=== PATIENT | male | born 1955 | race Hispanic/Latino ===

== ENCOUNTER 2018-05-30 22:18 | Observation (INO) | payer OTHER ==
[~2018-05-30] VITALS: Ht 170.2 cm; Wt 93.9 kg
[2018-05-31] MEDS ORDERED: HYDROCODONE/APAP 10MG-325MG TAB PO ONE (00:30)
[2018-05-31] MEDS ORDERED: ONDANSETRON HCL 4 MG ORAL DISINTEGRATING TAB PO ONE (00:30)
--- NOTE | 2018-05-31 02:28 | Diagnostic Imaging Report ---
RIBS UNILAT W/CXR Comparison: None Clinical history: \S\LEFT RIBS, FELL OFF LADDER \S\[id number] \S\104 Findings: Mildly enlarged cardiac silhouette. No edema or consolidation. Questionable tiny left apical pneumothorax. No significant pleural effusion. No acute displaced rib fracture. Screw fixation of the proximal left humerus. Impression: 1. Questionable tiny left apical pneumothorax versus artifact. 2. No acute displaced rib fracture. Signed by: Dr Salma Rodriguez MD on 05/31/2018 2:24 AM
--- NOTE | 2018-05-31 04:49 | Diagnostic Imaging Report ---
EXAM: CT CHEST WO DATE: 05/31/2018 2:56 AM INDICATION: \S\EVAL FOR PNEUMOTHORAX, RIB FX \S\[id number] \S\031 COMPARISON: None TECHNIQUE: Multidetector CT scanning of the chest was performed. Coronal and sagittal multiplanar reformations were obtained. IV Contrast: 0 ml Isovue 370/300 FINDINGS: LUNGS AND PLEURA: Small left pneumothorax and mild left basilar atelectasis. Additional basilar and subpleural groundglass opacities likely reflect a combination of atelectasis and scarring. There is a nonspecific 5 mm left lower lobe nodule on image 35. No pleural effusion. HEART, MEDIASTINUM, VESSELS: Cardiomegaly with coronary artery and aortic calcification. Trace pericardial effusion. No adenopathy. UPPER ABDOMEN: Unremarkable. Small hiatal hernia. MUSCULOSKELETAL: No acute displaced rib fracture. Partially imaged left humeral screw. Left glenohumeral degenerative changes. IMPRESSION: Small left pneumothorax. No acute underlying rib fracture. Signed by: Dr Salma Rodriguez MD on 05/31/2018 4:46 AM
[2018-05-31] MEDS ORDERED: SODIUM CHLORIDE 0.9% 1000ML 1,000 ML IV STA (05:04)
[2018-05-31 05:19] LABS: BASOPHILS % 0.5 % (0.0-1.0); EOSINOPHILS # (AUTO) 0.3 (0.0-0.4); EOSINOPHILS % 3.1 % (0.0-6.0); HEMATOCRIT 41.3 % (38.2-49.6); HEMOGLOBIN 13.6 g/dL (14.0-18.0); LYMPHOCYTES % 22.9 % (18.0-39.1); MEAN CORPUSCULAR HEMOGLOBIN 29.3 pg (28-32); MEAN CORPUSCULAR HGB CONC 32.9 g/dL (31-35); MONOCYTES # (AUTO) 0.7 (0.2-0.8); MONOCYTES % 7.7 % (4.4-11.3); NEUTROPHILS # (AUTO) 5.7 (2.1-6.9); NEUTROPHILS % 65.5 % (38.7-80.0); PLATELET COUNT 200 x10e3/uL (140-360); RED BLOOD COUNT 4.64 x10e6/uL (4.3-5.7); RED CELL DISTRIBUTION WIDTH 12.3 % (11.7-14.4)
[2018-05-31] MEDS ORDERED: ONDANSETRON HCL INJ 2 MG/ML VIAL IV PRN (05:30)
[2018-05-31 05:35] LABS: CLARITY,URINE CLEAR (CLEAR); COLOR,URINE YELLOW (YELLOW)
[2018-05-31 05:36] LABS: BILIRUBIN,URINE NEGATIVE (NEGATIVE); KETONES,URINE NEGATIVE (NEGATIVE); LEUKOCYTE ESTERASE ,URINE NEGATIVE (NEGATIVE); NITRITE,URINE NEGATIVE (NEGATIVE); PROTEIN,URINE DIPSTICK NEGATIVE (NEGATIVE); URINE UROBILINOGEN 0.2 mg/dL (0.2 - 1)
[2018-05-31 05:37] LABS: BACTERIA,URINE RARE /HPF; EPITHELIAL CELLS,URINE RARE /LPF
[2018-05-31 05:52] LABS: INR 1.03; PROTHROMBIN TIME 12.7 seconds (11.9-14.5)
[2018-05-31 05:53] LABS: PARTIAL THROMBOPLASTIN TIME 26.9 seconds (23.8-35.5)
[2018-05-31 06:00] LABS: ALBUMIN 4.1 g/dL (3.5-5.0); ALBUMIN/GLOBULIN RATIO 1.5 (0.8-2.0); ANION GAP 16.6 mmol/L (8-16); CALCIUM 9.4 mg/dL (8.4-10.2); CREATININE, SERUM 1.25 mg/dL (0.72-1.25); POTASSIUM 3.6 mmol/L (3.5-5.1)
[2018-05-31 06:06] LABS: CREATINE KINASE MB 1.8 ng/mL (0-5.0)
[2018-05-31] MEDS: SODIUM CHLORIDE 0.9% 1000ML 1,000 ML IV SCH ×3 (06:26→21:02)
[2018-05-31] MEDS: HYDROCODONE/APAP 10MG-325MG TAB PO PRN ×2 (08:03→18:29)
--- NOTE | 2018-05-31 08:38 | Diagnostic Imaging Report ---
PROCEDURE: X-RAY CHEST, MULTIPLE VIEWS WITH UPRIGHT INSPIRATORY AND EXPIRATORY PA VIEWS COMPARISON: CT scan of the chest dated 2017 at 3:08 AM INDICATIONS: PNEUMOTHORAX FINDINGS: LUNGS: No consolidations or edema. Basilar airspace opacities compatible with atelectasis. PLEURA: No effusions or pneumothorax. Previously visualized small pneumothorax seen on the chest CT not readily apparent on this study. HEART \T\ MEDIASTINUM: The heart is within normal size-limits. BONES \T\ SOFT TISSUES: No acute findings. CONCLUSION: Bibasilar atelectasis. Barrera Boyle D.O. Dictated by: Barrera Boyle D.O. on 05/31/2018 at 8:45 Electronically approved by: Barrera Boyle D.O. on 05/31/2018 at 8:45
[2018-05-31] MEDS ORDERED: DOCUSATE SODIUM 100 MG CAP PO PRN (09:45)
[2018-05-31] MEDS ORDERED: ACETAMINOPHEN 325 MG TAB PO PRN (09:45)
[2018-05-31] MEDS ORDERED: ALBUTEROL/IPRATROPIUM 3 ML NEB NEB PRN (09:45)
--- NOTE | 2018-05-31 10:34 | History and Physical ---
PATIENT LOCATION: ER room 3. PRESENTING COMPLAINT: Left-sided chest wall pain, status post accidental fall yesterday. HISTORY OF PRESENT ILLNESS: This 62-year-old male was admitted from ER. The patient came himself to ER last night. He told that he had accidental fall from ladder while he was working at home around noontime yesterday. The patient told that the ladder accidentally slipped and he fell on the stairs on the left side of the chest. The patient had some abrasion over his left chest wall. The patient did not go to the hospital. At that time, he was staying at home. With passage of time, his pain got worse. At that time, he decided to come to the hospital. The patient denied any loss of consciousness, dizziness, chest pain, or palpitations prior to the fall. He denies any other complaints at the present time other than pain. The patient had mild shortness of breath last night. He denies any shortness of breath at the present time. He also denies any hemoptysis, fever, nausea or vomiting. The patient did not have any similar episode in the past as per his statement. REVIEW OF SYSTEMS CONSTITUTIONAL: No fever, chills, rigor. ENT: No nasal congestion or sore throat. No visual disturbance. No earache. No discharge or bleeding from nose or ears. CARDIOVASCULAR: No chest pain, shortness of breath, palpitations. PULMONARY: No cough, no hemoptysis. GI: No abdominal pain, nausea, vomiting. No passage of bloody stool or black stool. : No dysuria. No hematuria. MUSCULOSKELETAL, SKIN, LYMPHATIC: Left chest wall pain as per the HPI. No other joint pain. No joint swelling. No skin rash. No laceration. Patient has abrasion about his left lateral chest wall. NEUROLOGIC: No loss of consciousness, seizure or headache. HISTORY OF PAST MEDICAL ILLNESS: Hypertension, hyperlipidemia, gouty arthritis, lumbar spondylosis, osteoarthritis, fatty liver. No history of CAD or stroke. HISTORY OF PAST SURGERY: No history of surgery. ALLERGIES: NO KNOWN MEDICATION ALLERGIES. HOME MEDICATIONS: As per med reconciliation sheet. SOCIAL HISTORY: The patient lives at home with his girlfriend. He has adult children. 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 HABITS: The patient quit cigarette smoking in the remote past. He smokes marijuana at times. He drinks alcohol socially. Denies any IV substance abuse history. FAMILY HISTORY: Patients mother has carcinoma of breast and hypertension. His father of alcoholic cirrhosis. His siblings are alive and healthy. PHYSICAL EXAMINATION VITALS: BP 139/70, pulse 42 to 52, temp 97.1, T-max 92.8, respirations 14 to 18, SpO2 96% to 100% on 2 L oxygen via nasal cannula. GENERAL: Alert, not in acute distress now. Lying in bed comfortably. HEENT: No pallor. No icterus. Pupils are equal and reacting. Oral mucosa is moist. NECK: Supple. No JVD. No carotid bruit. No lymphadenopathy. No thyromegaly. HEART: S1 and S2 regular. No murmur. LUNGS: Air entry equal on both sides. No crackles. No rhonchi. Chest wall on left lateral side abrasion and mass present with mild swelling and tenderness. No laceration. No bleeding. ABDOMEN: Soft, nontender. No palpable mass. Bowel sounds active in all quadrants. EXTREMITIES: No edema, cyanosis, clubbing. NEUROLOGIC: Motor grossly equal on both sides. LAB DATA: EKG: Sinus bradycardia at a rate of 42 beats per minute. No significant ST-T changes. CBC: WBC 8.66, hemoglobin 13.6, hematocrit 41.3, platelets 200, MCV 89, RDW 12. PT 12.7, INR 1.0, PTT 26.9. Chemistry panel: Sodium 140, potassium 3.6, chloride 100, CO2 27, anion gap 13, BUN 22, creatinine 1.25, glucose 106, calcium 9.4, total bilirubin 0.6, AST 20, ALT 29, alk phos 51, CK 677, CK-MB 1.80, troponin 0.001, total protein 6.9, albumin 4.1, globulin 2.8. Urinalysis negative for protein, glucose, ketones, leukocyte esterase. WBCs none. RBCs none. RADIOLOGICAL DATA: X-ray of chest and rib series: Questionable tiny left apical pneumothorax. No acute displaced rib fracture. CT of chest without contrast: Small left pneumothorax. No acute underlying rib fracture. Cardiomegaly with coronary artery and aortic calcifications plus pericardial effusion. No adenopathy. Small left pneumothorax and mild left basilar atelectasis. No pleural effusion. ASSESSMENT AND PLAN 1. Left chest wall pain status post fall. No evidence of fracture on chest x-ray and CT. Would keep the patient on pain medication. 2. Small left apical pneumothorax, likely secondary to the soft-tissue trauma from fall. Pulmonary consult is requested from ER. Will follow pulmonary's recommendations. Patient does not appear to have any symptoms. Will have a repeat chest x-ray in the morning. 3. Sinus bradycardia, exact etiology not clear. Will monitor for now. Can ask manager supply chain planning if they have any evaluation while the patient is in the hospital or as an outpatient. 4. Hypertension. Continue regular medications. 5. Hyperlipidemia. Continue regular medications. 6. History of gouty arthritis. Continue regular medications. 7. Slight elevation of the creatine kinase, likely due to mild rhabdomyolysis. Patient does not have any anion gap. Will keep the patient currently on IV hydration for now. Check CK in the morning. 8. Discharge plan: Will discharge the patient when cleared by the study lead. Job#: [id number]
[2018-05-31] MEDS: TIZANIDINE HCL 4 MG TAB PO SCH (11:35)
[2018-05-31] MEDS: ALLOPURINOL 300 MG TAB PO SCH (11:35)
[2018-05-31] MEDS: LOSARTAN POTASSIUM 100 MG TAB PO SCH (11:35)
[2018-05-31] MEDS: AMLODIPINE BESYLATE 5 MG TAB PO SCH (11:35)
[2018-05-31] MEDS: HYDROCHLOROTHIAZIDE 25 MG TAB PO SCH (11:35)
[2018-05-31] MEDS: FAMOTIDINE 20 MG TAB PO SCH ×2 (11:35→16:56)
[2018-05-31] MEDS: ASPIRIN 81 MG ENTERIC COATED PO SCH (11:55)
[2018-05-31 12:21] LABS: CREATINE KINASE 642 IU/L (30-200)
[2018-05-31 16:14] VITALS: BP 137/73
[2018-05-31 16:34] VITALS: BP 137/73
--- NOTE | 2018-05-31 16:38 | Consultation ---
DATE OF CONSULTATION: May 31, 2018 PULMONARY CONSULTATION REASON FOR CONSULTATION: Pneumothorax. HPI: Mr. Terry is a 62-year-old male who presented to the emergency room after he fell from a 7 foot ladder. The patient had a small pneumothorax which was visible on chest x-ray and CT chest but no respiratory distress. He has been put on high-flow oxygen. He currently is denying any chest pain. He was having some chest discomfort earlier. He denies any nausea, vomiting or diarrhea. REVIEW OF SYSTEMS: GENERAL: Denies any fever or chills. HEENT: Denies any head trauma. ENT denies any earache. CVS: Now denies any chest pain. RESPIRATORY: Denies any shortness of breath. The rest of the review systems are negative except as in history of present illness. PAST MEDICAL HISTORY: Hypertension and hyperlipidemia. PAST SURGICAL HISTORY: None. FAMILY AND SOCIAL HISTORY: He does not smoke and does not drink. He works in construction. PHYSICAL EXAMINATION: VITALS: Temperature 98.4, pulse of 88, blood pressure 111/62. Respiratory rate of 18. O2 sat 99%. He is on high-flow 6 liters HEENT: Head atraumatic and normocephalic. NECK: Supple. CHEST: Is clear to auscultation bilaterally. No wheezing and no crackles. HEART: S1 and S2 audible. ABDOMEN: Soft, nontender and nondistended. EXTREMITIES: No clubbing, cyanosis or edema. NEUROLOGIC: Awake and alert and no focal neurological deficit. LABORATORY DATA: White count of 8.6, hemoglobin 13.6, platelets 200, sodium 140, potassium 3.6, chloride 100, BUN 22, creatinine 1.25. Chest x-ray and CT chest reviewed the images. ASSESSMENT AND PLAN: A 62-year-old male with traumatic pneumothorax. No rib fracture visible. Small pneumothorax. No need for chest tube. PLAN: Agree with the high-flow oxygen for now. Will repeat a chest x-ray to further evaluate. Hopefully, the patient will be able to be discharged in 24 to 48 hours. Job#: [id number]
[2018-05-31 17:01] VITALS: BP 137/73
[2018-05-31 20:00] VITALS: BP 156/71
[2018-05-31] MEDS ORDERED: ATORVASTATIN 40 MG TAB PO SCH (21:00)
[2018-05-31] MEDS ORDERED: ATORVASTATIN 20 MG TAB PO SCH (21:00)
[2018-05-31 21:04] LABS: CREATINE KINASE MB 1.4 ng/mL (0-5.0)
[2018-06-01] VITALS: BP 151/79
[2018-06-01 04:00] VITALS: BP 164/80
[2018-06-01] MEDS: SODIUM CHLORIDE 0.9% 1000ML 1,000 ML IV SCH (05:16)
--- NOTE | 2018-06-01 05:18 | Diagnostic Imaging Report ---
CHEST 2 VIEWS, Technique: CHEST 2 VIEWS Comparison: 05/31/2018 Clinical history: Pneumothorax Findings: Stable mildly enlarged heart and mediastinal silhouette. Essentially resolved left apical pneumothorax. Mild left basilar opacity, likely atelectasis. IMPRESSION: Essentially resolved left apical pneumothorax. Signed by: Dr Salma Rodriguez MD on 06/01/2018 5:14 AM
[2018-06-01 05:20] LABS: BASOPHILS % 0.4 % (0.0-1.0); EOSINOPHILS # (AUTO) 0.2 (0.0-0.4); EOSINOPHILS % 2.9 % (0.0-6.0); HEMATOCRIT 40.3 % (38.2-49.6); HEMOGLOBIN 13.3 g/dL (14.0-18.0); LYMPHOCYTES # (AUTO) 1.7 (1.0-3.2); LYMPHOCYTES % 22.8 % (18.0-39.1); MEAN CORPUSCULAR HEMOGLOBIN 29.7 pg (28-32); MONOCYTES # (AUTO) 0.7 (0.2-0.8); MONOCYTES % 9.5 % (4.4-11.3); NEUTROPHILS # (AUTO) 4.7 (2.1-6.9); PLATELET COUNT 183 x10e3/uL (140-360); RED BLOOD COUNT 4.48 x10e6/uL (4.3-5.7); RED CELL DISTRIBUTION WIDTH 12.3 % (11.7-14.4)
[2018-06-01 06:01] LABS: ALANINE AMINOTRANSFERASE 25 IU/L (0-55); ALBUMIN 3.8 g/dL (3.5-5.0); ALBUMIN/GLOBULIN RATIO 1.4 (0.8-2.0); ALKALINE PHOSPHATASE 49 IU/L (40-150); BLOOD UREA NITROGEN 13 mg/dL (7-26); BUN/CREATININE RATIO 14 (6-25); CALCIUM 9.1 mg/dL (8.4-10.2); CARBON DIOXIDE 27 mmol/L (22-29); CHLORIDE 103 mmol/L (98-107); CREATININE, SERUM 0.94 mg/dL (0.72-1.25); EST GLOMERULAR FILTRATION RATE > 60 ML/MIN (60-); GLUCOSE 107 mg/dL (74-118); MAGNESIUM 1.9 MG/DL (1.3-2.1); SODIUM 140 mmol/L (136-145)
[2018-06-01 06:13] LABS: THYROID STIMULATING HORMONE 2.086 uIU/mL (0.350-4.940)
[2018-06-01 06:46] LABS: CHOL/HDL RATIO 2.9 (3.9-4.7)
[2018-06-01 06:51] LABS: CREATINE KINASE MB 1.1 ng/mL (0-5.0)
--- NOTE | 2018-06-01 07:25 | Consultation ---
DATE OF CONSULTATION: June 01, 2018 CARDIOLOGY CONSULTATION REASON FOR CONSULTATION: Bradycardia. HPI: This is a 62-year-old male that presented status post fall. According to the patient, he was walking around his house when he fell off a ladder sustaining pain to the left chest area, left arm and left shoulder that he presented to the emergency room for evaluation. In the ER, he had a CT of the chest done that showed small left pneumothorax and he was admitted for further evaluation. He stated having a history of bradycardia. Heart rate in the 40s to 50s. He exercises daily and does 10 miles every day. He denies any palpitation, any shortness of breath, any diaphoresis, or headache. His BNP was 185. Troponin was negative. EKG showed sinus bradycardia with no S/T abnormalities. PAST MEDICAL HISTORY: Hypertension, hyperlipidemia, hypothyroidism, bradycardia, and gout. PAST SURGICAL HISTORY: None. FAMILY HISTORY: Positive for diabetes and hypertension. SOCIAL HISTORY: Lives with family. No smoking. No drinking. MEDICATIONS: See med list. ALLERGIES: HE IS NOT ALLERGIC TO ANY MEDICATIONS. REVIEW OF SYSTEMS: Negative except that mentioned above. His bradycardic and status post fall. PHYSICAL EXAMINATION VITAL SIGNS: Temperature 97, heart rate 48, blood pressure 140/80, respirations 20, oxygen saturation 100% on high flow oxygen. GENERAL: He is awake, alert and oriented times 3. HEENT: Mucous membranes moist. NECK: Supple. LUNGS: Bilateral with decreased breath sounds. CARDIOVASCULAR: S1 and S2 present. ABDOMEN: Soft. NEUROLOGICAL: Intact. EXTREMITIES: With no edema. LABS: Sodium 140, potassium 4, chloride 103, CO2 27, BUN 13, creatinine 0.94, glucose 107. White blood cells 7.28, hemoglobin 13.3, hematocrit 40.3, and platelets 183,000. PT 12.7, PTT 26.9 and INR 1.03. IMPRESSION 1. Sinus bradycardia. 2. Hypertension. 3. Hyperlipidemia. 4. Status post fall. 5. History of gout. 6. History of bradycardia. ASSESSMENT AND PLAN: His heart rate is still in the 40s to 50s. He is asymptomatic and had a history of bradycardia. He had a cardiac stress test in 2014 in [place] that was negative. He also stated that he does 10 miles and exercises every day. He sustained a small left pneumothorax and no chest tube was required. Will go ahead and get an echocardiogram to assess the LV and the valve function. Further cardiac workup pending clinical cause. Thank you for this consultation. DICTATED BY EVELINA WANG NP Job#: [id number] RI
[2018-06-01] MEDS: LOSARTAN POTASSIUM 100 MG TAB PO SCH (08:16)
[2018-06-01] MEDS: ASPIRIN 81 MG ENTERIC COATED PO SCH (08:16)
[2018-06-01] MEDS: FAMOTIDINE 20 MG TAB PO SCH (08:16)
[2018-06-01] MEDS: ALLOPURINOL 300 MG TAB PO SCH (08:17)
[2018-06-01] MEDS: TIZANIDINE HCL 4 MG TAB PO SCH (08:17)
[2018-06-01] MEDS: AMLODIPINE BESYLATE 5 MG TAB PO SCH (08:17)
[2018-06-01] MEDS: HYDROCHLOROTHIAZIDE 25 MG TAB PO SCH (08:17)
[2018-06-01 08:25] VITALS: BP 159/82
[2018-06-01 09:23] VITALS: BP 159/82
[2018-06-01 12:16] VITALS: BP 130/70
--- NOTE | 2018-06-01 18:12 | Discharge Summary ---
CONSULTATIONS 1. Dr. Delgado, jacker feeder. 2. Dr. Emmanuel, research methodologist. FINAL DIAGNOSIS: Traumatic left apical small pneumothorax, resolved. OTHER DIAGNOSES 1. Accidental fall episode at home with left chest wall soft tissue injury. 2. Asymptomatic sinus bradycardia. 3. Hypertension. 4. Hyperlipidemia. 5. Mild rhabdomyolysis due to soft tissue trauma, improved. BRIEF HOSPITAL COURSE: A 62-year-old male was admitted from ER for patient had a fall episode at home from ladder. He fell on his left side of the chest. There is no reports of any trauma to the head. Patient had abrasion [place] over his chest wall. Initially, he did not come to the hospital. He was staying at home, but gradually he started more pain with mild shortness of breath for which he came to the ER. X-ray chest was positive for small left apical pneumothorax without any rib fracture. CT chest without contrast was done, which showed small apical pneumothorax without any fracture. Patient had small pulmonary nodule. He is nonsmoker. Patient was kept for observation. Dr. Delgado, jacker feeder, was consulted. He recommended observation. No need for any chest tube placement. Patient was also found having bradycardia in 40s. Dr. Emmanuel, research methodologist, was consulted. Patient was kept on telemetry. Did not show any other significant arrhythmia. Echocardiogram was done, which showed normal left ventricular ejection fraction. Patient did not have any other complaints. He was cleared by the research methodologist. Patient was discharged home with the instructions for follow up with research methodologist. His repeat chest x-ray done today showed resolution of the apical small pneumothorax. Patient was hemodynamically stable at discharge. VITALS: BP 130/70, pulse 45, temp 97.3, respirations 16, SpO2 of 96% on 3 liters of oxygen by nasal cannula. PHYSICAL EXAMINATION GENERAL: Alert. Not in acute distress. Complains of the pain over the chest wall. HEENT: No pallor. No icterus. Pupils are equally reacting. No facial asymmetry. Oral mucosa is moist. No nasal congestion. NECK: No JVD. No carotid bruit. No lymphadenopathy. No thyromegaly. Neck is supple. HEART: S1 and S2 regular. No murmur. LUNGS: Clear to auscultation. ABDOMEN: Soft, nontender. No palpable mass. EXTREMITIES: No edema, cyanosis, clubbing. NEUROLOGY: Muscle strength symmetric on both sides. LAB DATA: CBC: WBC 7.28, hemoglobin 13, hematocrit 40, platelets 183, MCV 90, RDW 12, neutrophils 64, lymphocytes 22. PT 12.7, INR 1.03, PTT 26.9. Chemistry panel: Sodium 140, potassium 4.0, chloride 102, CO2 27, anion gap 10, glucose 107, BUN 13, creatinine 0.94, calcium 9.1, magnesium 1.9. Total bilirubin 0.5, AST 23, ALT 25, alk phos 49. CK 413, troponin I 0.003. BNP 185. Total protein 6.3, albumin 3.8, globulin 2.8. Triglycerides 153, total cholesterol 159, LDL 73, HDL 55. TSH 2.08, free T4 1.04. RADIOLOGICAL DATA: X-ray chest with ribs: Left apical pneumothorax. No acute displaced rib fracture. CT chest without contrast: Small left pneumothorax, no acute underlying rib fracture. Repeat chest x-ray done this morning: Essentially resolved left apical pneumothorax, mildly enlarged heart and mediastinal shadow, mild left basilar opacity, likely atelectasis. Echocardiogram: Left ventricular wall thickness normal, normal systolic function, ejection fraction 60% to 65%. MEDICATIONS ON DISCHARGE: Please refer to the med reconciliation sheet. DIET: Cardiac diet. ACTIVITY: As tolerated. Fall precautions. INSTRUCTIONS ON DISCHARGE: Continue medications as per discharge recommendation. Chest wall and therapy advised at home as per pulmonology recommendations. Follow up with research methodologist as available. Follow up with me in 1 to 2 weeks. Monitor BP, pulse at home. DAVE TAPIA MD Job#: [id number] HUGO
== END 2018-06-01 14:34 | disposition home or self-care (01) ==
LOC: ER 22:18 → ERHOLD 05-31 05:34 → IMCU 05-31 16:04
PROVIDERS: ADMIT Internal Medicine; ATTEND Internal Medicine
DX: S27.0XXA Traumatic pneumothorax, initial encounter (principal); W11.XXXA Fall on and from ladder, initial encounter; Y93.89 Activity, other specified; Y92.019 Unspecified place in single-family (private) house as the place of occurrence of the external cause; I10 Essential (primary) hypertension; E78.5 Hyperlipidemia, unspecified; Z80.3 Family history of malignant neoplasm of breast; Z81.1 Family history of alcohol abuse and dependence; R00.1 Bradycardia, unspecified; M10.9 Gout, unspecified; E03.9 Hypothyroidism, unspecified; M62.82 Rhabdomyolysis
CPT/HCPCS: 36415 ×2; 71046; 71101; 71250; 80053 ×2; 80061; 81001; 82550 ×2; 82553 ×2; 83735; 83880; 84439; 84443; 84484 ×2; 85025 ×2; 85610; 85730; 93005; 93306; 96361; 99285; G0378 ×2; J7030 ×2

== ENCOUNTER 2019-12-28 14:48 | Inpatient (IN) | payer OTHER ==
[~2019-12-28] VITALS: Ht 170.2 cm; Wt 91.6 kg
--- OUTSIDE RECORDS SUMMARY | 2019-12-28 14:50 | XMS REPORT ---
Author Author [facility] Address Unknown Phone Unavailable Care Team Providers Care Manager Real Estate Name Role Phone Gaston TAPIA Unavailable Unavailable Problems This patient has no known problems. Allergies, Adverse Reactions, Alerts This patient has no known allergies or adverse reactions. Medications This patient has no known medications. Results Test Description Test Time Test Comments Text Results Atomic Results Result Comments CHEST 2 VIEWS 2018-06-01 05:11:00 [place] [address] Patient Name: AYLEEN CLEMENTE MR #: [id number] : 1955 Age/Sex: 62/M Req #: [id number] [facility] Physician: DAVE TAPIA MD Ordered by: DAVE TAPIA MD Report #: [id number] Location: [facility] Room/Bed: [place] [address] Procedure: [id number] DX/CHEST 2 VIEWS Exam Date: 06/01/18 Exam Time: 0423 REPORT STATUS: Signed CHEST 2 VIEWS, Technique: CHEST 2 VIEWS Comparison: 05/31/2018 Clinical history: Pneumothorax Findings: Stable mildly enlarged heart and mediastinal silhouette. Essentially resolved left apical pneumothorax. Mild left basilar opacity, likely atelectasis. IMPRESSION: Essentially resolved left apical pneumothorax. Signed by: Dr Aye Rodriguez MD on 06/01/2018 5:14 AM Dictated By: AYE RODRIGUEZ MD 3 Transcribed By: SALVATORE on 06/01/18513 COPY TO: DAVE TAPIA MD CHEST SPECIAL VIEWS 2018-05-31 08:45:00 [place] [address] Patient Name: AYLEEN CLEMENTE MR #: [id number] : 1955 Age/Sex: 62/M Req #: [id number] Adm Physician: DAVE TAPIA MD Ordered by: DAMI CHACKO MD Report #: [id number] Location: [facility] Room/Bed: [place] [address] Procedure: [id number] DX/CHEST SPECIAL VIEWS Exam Date: 05/31/18 Exam Time: 0815 REPORT STATUS: Signed PROCEDURE: X-RAY CHEST, MULTIPLE VIEWS WITH UPRIGHT INSPIRATORY AND EXPIRATORY PA VIEWS COMPARISON: CT scan of the chest dated 2017 at 3:08 AM INDICATIONS: PNEUMOTHORAX FINDINGS: LUNGS: No consolidations or edema. Basilar airspace opacities compatible with atelectasis. PLEURA: No effusions or pneumothorax. Previously visualized small pneumothorax seen on the chest CT not readily apparent on this study. HEART T MEDIASTINUM: The heart is within normal size- limits. BONES T SOFT TISSUES: No acute findings. CONCLUSION: Bibasilar atelectasis. Conrad Boyle D.O. Dictated by: Conrad Boyle D.O. on 05/31/2018 at 8:45 Electronically approved by: Conrad Boyle D.O. on 05/31/2018 at 8:45 Dictated By: CONRAD BOYLE DO Transcribed By: JEREMY on 05/31/18 0845 COPY TO: DAMI CHACKO MD CT CHEST WO 2018-05-31 04:16:00 [place] [address] Patient Name: AYLEEN CLEMENTE MR #: [id number] : 1955 Age/Sex: 62/M Req #: [id number] Adm Physician: Ordered by: DAMI CHACKO MD Report #: [id number] Location: ER Room/Bed: Procedure: [id number] CT/CT CHEST WO Exam Date: 05/31/18 Exam Time: 309 REPORT STATUS: Signed EXAM: CT CHEST WO DATE: 05/31/2018 2:56 AM INDICATION: S EVAL FOR PNEUMOTHORAX, RIB FX S [id number] S 031 COMPARISON: None TECHNIQUE: Multidetector CT scanning of the chest was performed. Coronal and sagittal multiplanar reformations were obtained. IV Contrast: 0 ml Isovue 370/300 FINDINGS: LUNGS AND PLEURA: Small left pneumothorax and mild left basilar atelectasis. Additional basilar and subpleural groundglass opacities likely reflect a combination of atelectasis and scarring. There is a nonspecific 5 mm left lower lobe nodule on image 35. No pleural effusion. HEART, MEDIASTINUM, VESSELS: Cardiomegaly with coronary artery and aortic calcification. Trace pericardial effusion. No adenopathy. UPPER ABDOMEN: Unremarkable. Small hiatal hernia. MUSCULOSKELETAL: No acute displaced rib fracture. Partially imaged left humeral screw. Left glenohumeral degenerative changes. IMPRESSION: Small left pneumothorax. No acute underlying rib fracture. Signed by: Dr Aye Rodriguez MD on 05/31/2018 4:46 AM Dictated By: AYE RODRIGUEZ MD 5 Transcribed By: SALVATORE on 05/31/18445 COPY TO: DAMI CHACKO MD RIBS UNILAT W/CXR 2018-05-31 02:17:00 [place] [address] Patient Name: AYLEEN CLEMENTE MR #: [id number] : 1955 Age/Sex: 62/M Req #: [id number] Adm Physician: Ordered by: DAMI CHACKO MD Report #: [id number] Location: ER Room/Bed: Procedure: [id number] DX/RIBS UNILAT W/CXR Exam Date: 05/31/18 Exam Time: 010 REPORT STATUS: Signed RIBS UNILAT W/CXR Comparison: None Clinical history: S LEFT RIBS, FELL OFF LADDER S [id number] S 0105 Findings: Mildly enlarged cardiac silhouette. No edema or consolidation. Questionable tiny left apical pneumothorax. No significant pleural effusion. No acute displaced rib fracture. Screw fixation of the proximal left humerus. Impression: 1. Questionable tiny left apical pneumothorax versus artifact. 2. No acute displaced rib fracture. Signed by: Dr Aye Rodriguez MD on 05/31/2018 2:24 AM Dictated By: AYE RODRIGUEZ MD 3 Transcribed By: SALVATORE on 05/31/18223 COPY TO: DAMI CHACKO MD
[2019-12-28] MEDS ORDERED: ASPIRIN 81 MG CHEW TAB PO ONE (15:15)
[2019-12-28 15:30] LABS: BASOPHILS % 0.4 % (0.0-1.0); EOSINOPHILS # (AUTO) 0.3 (0.0-0.4); EOSINOPHILS % 3.4 % (0.0-6.0); HEMATOCRIT 44.9 % (38.2-49.6); HEMOGLOBIN 14.7 g/dL (14.0-18.0); LYMPHOCYTES # (AUTO) 1.9 (1.0-3.2); LYMPHOCYTES % 25.2 % (18.0-39.1); MEAN CORPUSCULAR HEMOGLOBIN 28.9 pg (28-32); MEAN CORPUSCULAR HGB CONC 32.7 g/dL (31-35); MEAN CORPUSCULAR VOLUME 88.4 fL (81-99); MONOCYTES # (AUTO) 0.6 (0.2-0.8); MONOCYTES % 8.5 % (4.4-11.3); NEUTROPHILS # (AUTO) 4.6 (2.1-6.9); NEUTROPHILS % 62.2 % (38.7-80.0); PLATELET COUNT 243 x10e3/uL (140-360); RED BLOOD COUNT 5.08 x10e6/uL (4.3-5.7); RED CELL DISTRIBUTION WIDTH 12.6 % (11.7-14.4)
[2019-12-28 15:42] LABS: INR 0.89; PROTHROMBIN TIME 12.6 seconds (11.9-14.5)
[2019-12-28 15:43] LABS: PARTIAL THROMBOPLASTIN TIME 27.1 seconds (23.8-35.5)
[2019-12-28 15:50] LABS: ALANINE AMINOTRANSFERASE 20 IU/L (0-55); ALBUMIN 4.2 g/dL (3.5-5.0); ALBUMIN/GLOBULIN RATIO 1.4 (0.8-2.0); ALKALINE PHOSPHATASE 57 IU/L (40-150); ANION GAP 10.7 mmol/L (8-16); BLOOD UREA NITROGEN 12 mg/dL (7-26); BUN/CREATININE RATIO 11 (6-25); CALCIUM 9.7 mg/dL (8.4-10.2); CARBON DIOXIDE 29 mmol/L (22-29); CHLORIDE 105 mmol/L (98-107); CREATINE KINASE 168 IU/L (30-200); CREATININE, SERUM 1.07 mg/dL (0.72-1.25); EST GLOMERULAR FILTRATION RATE > 60 ML/MIN (60-); GLUCOSE 82 mg/dL (74-118); POTASSIUM 3.7 mmol/L (3.5-5.1); SODIUM 141 mmol/L (136-145)
[2019-12-28] MEDS ORDERED: NITROGLYCERIN 0.4 MG SUBL SL PRN ×2 (16:15→19:15)
[2019-12-28] MEDS ORDERED: MORPHINE SULFATE 2 MG/ML SYR 1ML IV PRN (16:15)
[2019-12-28] MEDS ORDERED: ONDANSETRON HCL INJ 2MG/ML 2ML 2 MG/ML VIAL IV PRN (16:15)
--- NOTE | 2019-12-28 16:38 | Diagnostic Imaging Report ---
EXAMINATION: CHEST SINGLE (PORTABLE) INDICATION: Chest pain, shortness of breath. COMPARISON: Chest radiograph 06/01/2018. CT chest 05/31/2018. FINDINGS: TUBES and LINES: None. LUNGS: Lungs are well inflated. There is no evidence of pneumonia or pulmonary edema. PLEURA: No pleural effusion or pneumothorax. HEART AND MEDIASTINUM: The cardiomediastinal silhouette is unremarkable. BONES AND SOFT TISSUES: No acute osseous lesion. Soft tissues are unremarkable. UPPER ABDOMEN: No free air under the diaphragm. IMPRESSION: No acute thoracic abnormality. Signed by: Dr. Michelle Mejia MD on 12/28/2019 4:35 PM
[2019-12-28] MEDS ORDERED: ACETAMINOPHEN 325 MG TAB PO PRN (17:30)
--- NOTE | 2019-12-28 17:31 | NUR ---
LAB CALLED TO ADD ON
[2019-12-28] MEDS: FAMOTIDINE 20 MG/2 ML VIAL IV SCH (17:32)
--- NOTE | 2019-12-28 17:47 | NUR ---
RCD PT FROM ER BY BED PT IS ALERT AND ORIENTED VITALS CHECKED PT RESTING ON BED ADMISSION ASSESSMENT AND HISTORY AND FAMILY HISTORY DONE NO C/O CHEST PAIN NOW IV PATENT BY SALINE FLUSH INSTRUCTED THE PT REGARDING HOSPITAL POLICY AND ROUTINE BED LOW AND LOCKED CALL LIGHT IN REACH
[2019-12-28 17:50] VITALS: BP 161/88
[2019-12-28 18:24] VITALS: BP 161/88
[2019-12-28 18:25] VITALS: BP 161/88
--- NOTE | 2019-12-28 18:48 | NUR ---
PT RESTING ON BED BED SIDE REPORT GIVEN TO ONCOMING NURSE
[2019-12-28] MEDS ORDERED: HYDRALAZINE HCL 20 MG/ML VIAL IV PRN (19:15)
[2019-12-28 19:52] LABS: CREATINE KINASE 138 IU/L (30-200)
[2019-12-28 20:00] VITALS: BP 144/80
[2019-12-28] MEDS: ATORVASTATIN 20 MG TAB PO SCH (21:29)
[2019-12-28 21:55] VITALS: BP 146/82
[2019-12-29] VITALS (8 sets, daily range): BP systolic 132–154; BP diastolic 69–87
--- NOTE | 2019-12-29 00:58 | History and Physical ---
CHIEF COMPLAINT: Chest pain. HISTORY OF PRESENT ILLNESS: A 64-year-old male with known history of hyperuricemia, hypertension, presents to the ED with complaints of chest pressure ongoing since last night. The patient reports that during rest yesterday, he noticed he had some chest pain, chest pressure that lasted throughout majority of the night including to the majority of today. He denies any radiation to the left shoulder and arm. No associated nausea, vomiting, or any abdominal pain. No cough, no congestion. No fever. No sick contacts. No shortness of breath. Denies any trauma to the chest wall. The patient has no history of cardiac disease and has seen Cardiology in the past, but did not need any kind of stent placement. The patient was seen and evaluated at bedside on the medical floor. He is currently doing well with no other issues at this time. REVIEW OF SYSTEMS: Pertinent positives chest pressure. The rest of 14-point review of systems have been reviewed with the patient and are negative. ALLERGIES: NO KNOWN DRUG ALLERGIES. HOME MEDICATIONS: Currently not available at this time. PAST MEDICAL HISTORY: Hypertension and hyperuricemia. PAST SURGICAL HISTORY: Reports none. FAMILY HISTORY: Hypertension and diabetes. SOCIAL HISTORY: No drugs. No alcohol. Does not smoke. Good social support. He is . PHYSICAL EXAMINATION: VITAL SIGNS: Temperature is 97.1, pulse 49, respiratory rate is 18. His blood pressure was found to be 161/88 and pulse ox is 100% on room air. GENERAL: Not in no acute distress. Alert and oriented x3. Cooperative on examination. HEENT: Head atraumatic, atraumatic. Eyes; pupils are equal, round, and reactive to light bilaterally. Extraocular movements intact bilaterally. Neck was supple. Good range of motion. Throat; no evidence of erythema or exudates in the posterior pharynx. Has poor dentition. PULMONARY: Clear to auscultation bilaterally. No wheezing, rales, or rhonchi. No crackles appreciated. CARDIOVASCULAR: Positive S1-S2. No murmurs, rubs, or gallops. ABDOMEN: Soft, nondistended, nontender to palpation. Bowel sounds present. MUSCULOSKELETAL: Strength is 5/5 throughout. No evidence of any muscle deficits on examination. No weakness appreciated. NEUROLOGIC: Cranial nerves 2 through 12 grossly intact. No evidence of any neurological deficits on exam. SKIN: Intact. Warm to touch. Good cap refill. PSYCHIATRIC: Normal affect and mood. EXTREMITIES: No edema. Good range of motion throughout. LABORATORY DATA: Labs show white count 7.3, hemoglobin 14.7, hematocrit 44.9, and platelets of 243. Coagulation, PT 12, INR 0.89, PTT 27. Sodium 141, potassium 3.7, chloride 105, bicarb 29, anion gap of 10, BUN is 12, creatinine is 1.07, glucose 82, calcium 9.7, magnesium is 2, total bilirubin was 0.4, AST 18, ALT 20, alkaline phosphatase 57. Troponins were negative x1. CK 168, total protein 7.2, albumin is 4.2. BNP is 122. MICROBIOLOGY: None. IMAGING STUDIES: Chest x-ray, no acute thoracic abnormality. IMPRESSION: 1. Chest pain, rule out acute coronary syndrome. 2. Hypertension. 3. Sinus bradycardia. PLAN: At this time trend troponins. Aspirin, statin. A 2D echo and Cardiology consultation. First set of enzymes were found to be negative. EKG showed no acute findings. Continue on cardiac telemetry. Await Cardiology recommendations. Ask for his blood pressure, we do not know what his blood pressure medications at home, we will resume home medications except for beta-blockers. Heart rate is 49, but he is asymptomatic. We will need Cardiology evaluation of the EKG and cardiac telemetry. Lovenox for deep venous thrombosis prophylaxis. Encourage ambulation. Consultants involved Cardiology. MD ESTEVAN Samuel/WILFREDOL /[id number]
[2019-12-29 05:07] LABS: BASOPHILS % 0.4 % (0.0-1.0); EOSINOPHILS # (AUTO) 0.4 (0.0-0.4); EOSINOPHILS % 5.1 % (0.0-6.0); HEMATOCRIT 42.2 % (38.2-49.6); HEMOGLOBIN 13.9 g/dL (14.0-18.0); LYMPHOCYTES # (AUTO) 2.1 (1.0-3.2); LYMPHOCYTES % 28.5 % (18.0-39.1); MEAN CORPUSCULAR HEMOGLOBIN 28.8 pg (28-32); MEAN CORPUSCULAR HGB CONC 32.9 g/dL (31-35); MEAN CORPUSCULAR VOLUME 87.6 fL (81-99); MONOCYTES # (AUTO) 0.7 (0.2-0.8); MONOCYTES % 9.5 % (4.4-11.3); NEUTROPHILS # (AUTO) 4.2 (2.1-6.9); NEUTROPHILS % 56.2 % (38.7-80.0); PLATELET COUNT 203 x10e3/uL (140-360); RED BLOOD COUNT 4.82 x10e6/uL (4.3-5.7); RED CELL DISTRIBUTION WIDTH 12.5 % (11.7-14.4)
[2019-12-29 05:34] LABS: ALANINE AMINOTRANSFERASE 18 IU/L (0-55); ALBUMIN 3.8 g/dL (3.5-5.0); ALBUMIN/GLOBULIN RATIO 1.4 (0.8-2.0); ALKALINE PHOSPHATASE 51 IU/L (40-150); ANION GAP 12.1 mmol/L (8-16); BLOOD UREA NITROGEN 12 mg/dL (7-26); BUN/CREATININE RATIO 12 (6-25); CALCIUM 9.5 mg/dL (8.4-10.2); CARBON DIOXIDE 28 mmol/L (22-29); CHLORIDE 104 mmol/L (98-107); CHOL/HDL RATIO 4.7 (3.9-4.7); CHOLESTEROL 220 MD/DL (0-199); CREATININE, SERUM 1.04 mg/dL (0.72-1.25); EST GLOMERULAR FILTRATION RATE > 60 ML/MIN (60-); GLUCOSE 106 mg/dL (74-118); HDL CHOLESTEROL 47 MG/DL (40-60); LDL CHOLESTEROL 140 MG/DL (60-130); POTASSIUM 4.1 mmol/L (3.5-5.1); SODIUM 140 mmol/L (136-145); TRIGLYCERIDES 163 MG/DL (0-149)
[2019-12-29] MEDS: FAMOTIDINE 20 MG/2 ML VIAL IV SCH ×2 (05:35→15:28)
[2019-12-29 05:49] LABS: CREATINE KINASE 129 IU/L (30-200)
--- NOTE | 2019-12-29 07:05 | NUR ---
RCD PT AT BED PT IS ALERT AND ORIENTED PT RESTING ON BED IV PATENT BY SALINE FLUSH GETTING O2 3L BY NC BED LOW AND LOCKED CALL LIGHT IN REACH
--- NOTE | 2019-12-29 07:32 | NUR ---
Dr. Hubbard called
[2019-12-29] MEDS: ASPIRIN 81 MG ENTERIC COATED PO SCH (09:00)
[2019-12-29] MEDS: SODIUM CHLORIDE 0.9% 1000ML 1,000 ML IV SCH (15:10)
[2019-12-29] MEDS ORDERED: CLOPIDOGREL BISULFATE 75 MG TAB PO NR (15:15)
--- NOTE | 2019-12-29 16:46 | Consultation ---
DATE OF CONSULTATION: 12/29/2019 Cardiology Consultation Report REASON FOR CONSULTATION: Chest pain. HISTORY OF PRESENT ILLNESS: Mr. Terry is a 64-year-old gentleman with past medical history of hypertension, hyperlipidemia, not taking medications regularly, presents to this institution after having escalating chest pain episodes that began approximately 2 days ago. The patient reports that he developed substernal chest pressure, heaviness, tightness that began in the evening 2 days ago, associated with malaise and slight dyspnea. He decided to sleep it off and awoke with severe discomfort at 2 in the morning, which woke him from sleep. The patient was feeling very anxious and apprehensive and continued to have stuttering chest pain as the day progressed. He eventually came to the emergency room for further evaluation. Thus far, workup of his cardiac biomarkers have been negative. However, maintains that he has continued chest discomfort. He reports that the pain is nonpleuritic. He describes it as a substernal chest pressure, severe in nature and radiates to his left shoulder. He feels slight dyspnea with discomfort and currently reports that the discomfort is now low level. We had a long discussion in terms of different management options. He reports that he has had previous ischemic risk stratification couple years ago, which was negative, but no other further testing was done at that time. PAST MEDICAL HISTORY: 1. Hypertension. 2. Hypercholesteremia. PAST SURGICAL HISTORY: Denies. FAMILY HISTORY: Mother alive at 95 with hypertension. Father at 63 with cirrhosis complications. Reports brother and sister has hypertension and coronary artery disease, but denies any knowing specific details. SOCIAL HISTORY: He is currently a nonsmoker, but does admit to occasional marijuana use and has occasional alcohol. Denies any injectable or hard drug use. ALLERGIES: NO KNOWN DRUG ALLERGIES. HOME MEDICATIONS: Does not take any currently. REVIEW OF SYSTEMS: GENERAL: Denies any fevers or chills. HEENT: No headaches, visual complaints, sore throat, or stuffy nose. RESPIRATORY: Denies any pleuritic component to the chest pain. Has some dyspnea as noted above. No cough. CARDIOVASCULAR: As per HPI. No orthopnea. No PND. Occasional palpitations. No syncope or near syncope. GI: Denies any abdominal pain. Had some slight nausea. Denies any vomiting, bright red blood per rectum, melena, hematemesis, nausea, or vomiting. : Denies any dysuria, pyuria, or change in urinary frequency. MUSCULOSKELETAL: Has some occasional arm pain and back pain. No leg swelling. ENDOCRINE: Denies any heat or cold intolerance. NEUROLOGIC: Denies any focal weakness, numbness, tingling, seizures, headache, history of TIA or stroke. PSYCHIATRIC: No anxiety or delusions. LABORATORY DATA: White count of 7.5, hemoglobin 13.9, hematocrit of 42.2, and platelets of 203. Sodium 140, potassium 4.1, chloride 104, bicarb 28, BUN 12, creatinine 1.04, glucose of 106, A1c 6.2%, calcium 9.5, AST 18, ALT 18, alkaline phosphatase of 51, total protein of 6.5, and albumin of 3.8. TSH is 0.935. Triglyceride 163, HDL 47, and LDL 140. Troponin is less than 0.01. INR 0.89. Chest x-ray is unremarkable. EKG reveal sinus bradycardia, questionable inferior Q-waves and no ST-T wave changes, currently concerning for ischemia. DIAGNOSES: 1. Suspicious for unstable angina pectoris with class IV angina with lack of good alternative diagnosis. 2. Hypertension. 3. Hypercholesteremia. 4. Obesity. PLAN/RECOMMENDATIONS: 1. From a cardiovascular standpoint, we had a long discussion in terms of different management options. The patient is apprehensive doing another stress test. He said he had one negative couple years ago, however, denies symptoms like this before and is concerned he may have a complication due to his stuttering chest pain, which is reasonable. 2. So, long discussion in terms of different management options and we will go ahead and proceed with definitive ischemic risk stratification with a cardiac catheterization. 3. We will go ahead and avoid beta-isra due to his underlying resting bradycardia, which makes me suspicious he may have underlying right coronary artery disease. 4. Statin therapy. 5. Aspirin and we will go ahead and load with 600 mg of Plavix. 6. Further plan/recommendations to follow after heart catheterization. We will tentatively schedule for tomorrow morning, but we will proceed emergently should the patient's symptoms progress. MD ALESSANDRA Odonnell/JANIE /[id number]
[2019-12-29] MEDS: ENOXAPARIN SOD INJ 40 MG/0.4 ML SYR SC SCH (16:52)
--- NOTE | 2019-12-29 18:47 | NUR ---
PT RESTING ON BED BED SIDE REPORT GIVEN TO ONCOMING NURSE
--- NOTE | 2019-12-29 20:16 | Progress Note ---
DATE: 12/29/2019 Medicine Progress Note SUBJECTIVE: The patient is scheduled for left heart catheterization tomorrow with Cardiology. No overnight events. He is currently chest pain free. LABORATORY DATA: Lab findings show some white count 7.5, hemoglobin 13.9, hematocrit 42, platelets of 203. Chemistries reviewed, stable. LDL was 140. TSH is 0.935. Hemoglobin A1c 6.2. MICROBIOLOGY: None. IMAGING STUDIES: Nothing new. PHYSICAL EXAMINATION: VITAL SIGNS: Temperature is 97, pulse 51, respiratory rate is 18, blood pressure 140/81, pulse ox 98% on room air. GENERAL: No acute distress. Alert and oriented x3. Cooperative on examination. HEENT: Head is normocephalic, atraumatic. Eyes; pupils are equal, round, and reactive to the light bilaterally. Extraocular movements are intact bilaterally. NECK: Supple. Good range of motion. Throat; no evidence of erythema or exudates in the posterior pharynx. Has poor dentition. PULMONARY: Clear to auscultation bilaterally. No wheezing, rales, or rhonchi. No crackles appreciated. CARDIOVASCULAR: Positive S1 and S2. No murmurs, rubs, or gallops. ABDOMEN: Soft, nondistended, nontender to palpation. Bowel sounds present. MUSCULOSKELETAL: Strength is 5/5 throughout. No evidence of any muscle deficits on examination. No weakness appreciated. NEUROLOGIC: Cranial nerves II through XII grossly intact. No evidence of any neurological deficits on exam. SKIN: Intact. Warm to touch. Good cap refill. PSYCHIATRIC: Normal affect and mood. EXTREMITIES: No edema. Good range of motion throughout. IMPRESSION: 1. Chest pain likely atypical in nature. 2. Hypertension. 3. Sinus bradycardia. PLAN: At this time, the patient continues to have occasional chest pain on and off. After further discussion, the patient agreed to a cardiac cath, which has been ordered for tomorrow morning. Continue with cardioprotective medications. Continue with Lovenox for DVT prophylaxis. I discussed this case with Cardiology. MD ESTEVAN Samuel/JANIE /[id number]
[2019-12-29] MEDS: ATORVASTATIN 20 MG TAB PO SCH (21:31)
[2019-12-30] VITALS (9 sets, daily range): BP systolic 130–169; BP diastolic 65–80
[2019-12-30] MEDS: SODIUM CHLORIDE 0.9% 1000ML 1,000 ML IV SCH ×3 (02:48→16:06)
[2019-12-30 05:09] LABS: BASOPHILS % 0.4 % (0.0-1.0); EOSINOPHILS # (AUTO) 0.3 (0.0-0.4); EOSINOPHILS % 4.3 % (0.0-6.0); HEMATOCRIT 42.1 % (38.2-49.6); HEMOGLOBIN 13.6 g/dL (14.0-18.0); LYMPHOCYTES # (AUTO) 1.9 (1.0-3.2); LYMPHOCYTES % 26.5 % (18.0-39.1); MEAN CORPUSCULAR HEMOGLOBIN 28.3 pg (28-32); MEAN CORPUSCULAR HGB CONC 32.3 g/dL (31-35); MEAN CORPUSCULAR VOLUME 87.7 fL (81-99); MONOCYTES # (AUTO) 0.6 (0.2-0.8); MONOCYTES % 8.9 % (4.4-11.3); NEUTROPHILS # (AUTO) 4.3 (2.1-6.9); NEUTROPHILS % 59.5 % (38.7-80.0); PLATELET COUNT 186 x10e3/uL (140-360); RED CELL DISTRIBUTION WIDTH 12.5 % (11.7-14.4)
[2019-12-30] MEDS: FAMOTIDINE 20 MG/2 ML VIAL IV SCH ×2 (05:36→16:13)
--- NOTE | 2019-12-30 07:00 | NUR ---
Patient condition throughout the night was stable, patient endorsed to next shift for continuity of care.
[2019-12-30 07:30] LABS: INR 0.93
[2019-12-30] MEDS ORDERED: AMLODIPINE BESYL5 MG PO (08:34)
[2019-12-30] MEDS ORDERED: ALLOPURINOL300 MG PO (08:34)
[2019-12-30] MEDS ORDERED: LOSARTAN-HCTZ1 EAC1 PO (08:34)
[2019-12-30] MEDS: ASPIRIN 81 MG ENTERIC COATED PO SCH (09:00)
[2019-12-30] MEDS ORDERED: FENTANYL CITRATE/PF 100MCG/2 ML INJ ONE (11:23)
[2019-12-30] MEDS ORDERED: MIDAZOLAM HCL 2 MG/2 ML VIAL ONE ×2 (11:23→11:59)
[2019-12-30] MEDS ORDERED: LIDOCAINE HCL 2% LOCAL 20 ML VIAL ONE (11:23)
[2019-12-30] MEDS ORDERED: SODIUM CHLORIDE 0.9% 1000ML 1,000 ML ONE (11:24)
[2019-12-30] MEDS ORDERED: HEPARIN SOD/SOD CHLORIDE 2,000 ML ONE (11:24)
[2019-12-30] MEDS ORDERED: IOPAMIDOL 370 MG/ML 200 ML INFUS..BTL INJ ONE (11:24)
[2019-12-30] MEDS ORDERED: BIVALRIUDIN 250 MG/VIAL VIAL IV ONE (11:56)
[2019-12-30] MEDS ORDERED: CLOPIDOGREL BISULFATE 75 MG TAB ONE (12:01)
[2019-12-30] MEDS ORDERED: ASPIRIN 325 MG TAB ONE (12:01)
--- NOTE | 2019-12-30 12:20 | NUR ---
Back from heart cath. Dressing to right groin clean, dry, and intact. Patient aware of bed rest for 5 hours. Voiced understanding.
--- NOTE | 2019-12-30 14:20 | Progress Note ---
DATE: 12/30/2019 Medicine Progress Note SUBJECTIVE: The patient underwent left heart catheterization, had a PCI stent in the diagonal branch x1 stent. He is currently doing well. The patient will be monitored overnight for close monitoring and evaluation. PHYSICAL EXAMINATION: VITAL SIGNS: Temperature is 96.6, pulse 52, respiratory rate 17, blood pressure 169/80, pulse ox 97% on room air. GENERAL: No acute distress. Alert and oriented x3. Cooperative on examination. HEENT: Head is normocephalic, atraumatic. Eyes; pupils are equal, round, and reactive to the light bilaterally. Extraocular movements are intact bilaterally. NECK: Supple. Good range of motion. Throat; no evidence of erythema or exudates in the posterior pharynx. Has poor dentition. PULMONARY: Clear to auscultation bilaterally. No wheezing, rales, or rhonchi. No crackles appreciated. CARDIOVASCULAR: Positive S1 and S2. No murmurs, rubs, or gallops. ABDOMEN: Soft, nondistended, nontender to palpation. Bowel sounds present. MUSCULOSKELETAL: Strength is 5/5 throughout. No evidence of any muscle deficits on examination. No weakness appreciated. NEUROLOGIC: Cranial nerves 2 through 12 grossly intact. No evidence of any neurological deficits on exam. SKIN: Intact. Warm to touch. Good cap refill. PSYCHIATRIC: Normal affect and mood. EXTREMITIES: No edema. Good range of motion throughout. LABORATORY DATA: Labs show white count 7.2, hemoglobin 13.6, hematocrit is 42, platelets of 186. No chemistry today, they were canceled, we will repeat tomorrow. IMPRESSION: 1. Chest pain status post left heart catheterization with PCI in the diagonal branch placed today on 12/30/2019 by Cardiology. 2. Hypertension. 3. Sinus bradycardia. PLAN: At this time, the patient is doing well postprocedurally. Continue with cardioprotective medications. He is on anti-platelet therapy with Plavix, aspirin and statin. Continue with cardioprotective medications for now. I spoke with Cardiology, recommends monitor the patient overnight. We will get a.m. labs. If stable, discharge tomorrow. MD ESTEVAN Samuel/JANIE /[id number]
--- NOTE | 2019-12-30 15:14 | Operative Report ---
DATE OF PROCEDURE: 12/30/2019 SURGEON: Marcello Hubbard MD PROCEDURES PERFORMED: 1. Left heart cardiac catheterization with coronary angiography. 2. Left ventriculography. 3. Percutaneous coronary intervention with drug-eluting stent placement to the first diagonal branch. INDICATION FOR PROCEDURE: A 64-year-old gentleman, history of hypertension, hypercholesteremia, occasional smoker, presents to this institution with ongoing chest pain at rest compatible with unstable angina pectoris. In light of ongoing symptoms at rest including several episodes here in the hospital, we decided to proceed with definitive ischemic evaluation with a cardiac catheterization today. Procedure risks and benefits explained, alternatives discussed and he wished to proceed. DESCRIPTION OF PROCEDURE: After risks, benefits, pros and cons of today's procedure were explained, the patient agreed to proceed. He was brought to the cardiac catheterization laboratory. The right groin was prepped and draped in the usual sterile fashion. 1% lidocaine solution was used to numb the right groin region. Access to the right femoral artery was obtained utilizing ultrasound guidance and a micropuncture system, and a short 4-Georgian femoral sheath was placed. Selective coronary angiography of the [place] left and right coronary artery was performed with JL4 and 3DRC diagnostic catheters. Angled pigtail catheter was placed in the ventricle for ventriculography and hemodynamic assessment of ventricular filling pressures. He was noted to have high-grade first diagonal branch stenosis, which supplies a good chunk of his anterolateral myocardial wall and a sizeable vessel. There was an 80% proximal stenosis in that branch. We decided to proceed with intervention. A 4-Georgian femoral sheath to the left side, 6-Georgian femoral sheath. IV Angiomax bolus given for systemic anticoagulation. The patient had already received preload with Plavix the day before and we initially went up with a 6-Georgian XB3.5 guiding catheter. We then took 180 cm 0.014 Runthrough wire and crossed the lesion quite easily. We proceeded with a direct stenting strategy and placed a Resolute Hollister 2.0 x 12 mm drug-eluting stent and deployed up to 12 atmospheres of pressure. We then post dilated the proximal aspect of the stent with a 2.5 x 8 mm NC balloon up to 12 atmospheres of pressure after two inflations. Final angiography revealed 0% residual stenosis, ISAAC-3 flow, and no complications. At the conclusion of the case, we placed a 6-Georgian Angio-Seal closure device achieving hemostasis. COMPLICATIONS: None. ESTIMATED BLOOD LOSS: Minimal. FINDINGS: 1. Left main is angiographically normal, gives rise to an LAD, ramus intermedius, and circumflex branch. 2. LAD has a 30% ostial stenosis, the first diagonal branch has an 80% proximal stenosis. The remainder of this vessel and its branches are with just mild luminal irregularities. 3. Ramus intermedius is a moderate caliber vessel with just mild luminal irregularities. 4. Left circumflex artery gives rise to a mid marginal branch and this vessel and its branches are with luminal irregularities. 5. RCA is dominant, gives rise to right PDA, right PLV branch. There is a 30% mid RCA stenosis. 6. Left ventricular ejection fraction is 60%. End-diastolic pressure is 12 mmHg. There is no significant LV to aortic pullback gradient. INTERVENTION SUMMARY: Successful treatment of the 80% proximal first diagonal branch stenosis with implantation of a Resolute Sonny 2.0 x 12 mm drug-eluting stent, post dilated with a 2.5 balloon proximally resulting in 0% residual stenosis. ISAAC-3 flow. No complications. PLAN/RECOMMENDATIONS: 1. Aspirin and Plavix therapy. 2. Statin therapy. 3. Aggressive risk factor modification, medical therapy. 4. 6-hour bedrest. 5. Of note, the patient has underlying bradycardia with heart rate in the 40s to 50s and, hence, he is not on a beta isra. MD ALESSANDRA Odonnell/JANIE /[id number]
--- NOTE | 2019-12-30 15:41 | NUR ---
Nutrition Screen Note RD Recommendation for Physician: -Continue cardiac diet Plan of Care: RD following, monitoring for tolerance and adequacy Nutrition reason for involvement: Nutrition Risk Trigger MST 2 Primary Diagnose(s): chest pain PMH: Hypertension and hyperuricemia Ht: 67 in Wt:202 lb BMI: 31.6 kg/m2 IBW: [address] Assessment: (12/30/19) Chart reviewed. Labs and meds reviewed. Pt is a 64 year old male admitted with chest pain. Pt reports a good appetite and has been eating all of his meals. No weight loss reported. No N/V/D/C or chewing/swallowing issues. Will continue to monitor. Current Diet: cardiac diet Malnutrition Evaluation (12/30/19) The patient does not meet criteria for a specified degree of malnutrition at this time. Will re-evaluate at follow-up as appropriate. Diet Education Needs Assessment: Pt was not interested in diet education materials at time of visit. Nutrition Care Level: low Signed: Valerie Leone, RD, LD
[2019-12-30] MEDS: ENOXAPARIN SOD INJ 40 MG/0.4 ML SYR SC SCH (16:13)
[2019-12-30] MEDS: HYDROCODONE/APAP 5MG-325MG TAB PO PRN (16:13)
--- NOTE | 2019-12-30 19:00 | NUR ---
BEDSIDE NURSING SHIFT REPORT COMPLETED WITH MORNING NURSE. PT ALERT AND ORIENTED, SITTING IN CHAIR. FAMILY AT BEDSIDE. DENIES PAIN AT THIS TIME. CALL LIGHT WITHIN REACH. WILL CONTINUE TO MONITOR.
--- NOTE | 2019-12-30 19:28 | NUR ---
Report given to oncoming nurse. No s/s of acute distress noted. Side rails upx2, call light within reach.
[2019-12-30] MEDS: ATORVASTATIN 20 MG TAB PO SCH (20:49)
[2019-12-31] VITALS: BP 154/86
[2019-12-31] MEDS: HYDROCODONE/APAP 5MG-325MG TAB PO PRN (02:48)
[2019-12-31 04:00] VITALS: BP 134/72
[2019-12-31] MEDS: FAMOTIDINE 20 MG/2 ML VIAL IV SCH (04:50)
[2019-12-31 05:09] LABS: BASOPHILS % 0.2 % (0.0-1.0); EOSINOPHILS # (AUTO) 0.3 (0.0-0.4); EOSINOPHILS % 2.9 % (0.0-6.0); HEMATOCRIT 40.4 % (38.2-49.6); HEMOGLOBIN 13.3 g/dL (14.0-18.0); LYMPHOCYTES # (AUTO) 1.4 (1.0-3.2); MEAN CORPUSCULAR HEMOGLOBIN 28.4 pg (28-32); MEAN CORPUSCULAR HGB CONC 32.9 g/dL (31-35); MEAN CORPUSCULAR VOLUME 86.3 fL (81-99); MONOCYTES # (AUTO) 0.8 (0.2-0.8); MONOCYTES % 8.8 % (4.4-11.3); NEUTROPHILS # (AUTO) 6.5 (2.1-6.9); NEUTROPHILS % 71.8 % (38.7-80.0); PLATELET COUNT 188 x10e3/uL (140-360); RED BLOOD COUNT 4.68 x10e6/uL (4.3-5.7); RED CELL DISTRIBUTION WIDTH 12.5 % (11.7-14.4)
[2019-12-31 05:34] LABS: ALANINE AMINOTRANSFERASE 19 IU/L (0-55); ALBUMIN 3.8 g/dL (3.5-5.0); ALBUMIN/GLOBULIN RATIO 1.6 (0.8-2.0); ALKALINE PHOSPHATASE 49 IU/L (40-150); BLOOD UREA NITROGEN 14 mg/dL (7-26); BUN/CREATININE RATIO 14 (6-25); CARBON DIOXIDE 25 mmol/L (22-29); CHLORIDE 107 mmol/L (98-107); CHOL/HDL RATIO 4.9 (3.9-4.7); CHOLESTEROL 195 MD/DL (0-199); CREATININE, SERUM 1.02 mg/dL (0.72-1.25); EST GLOMERULAR FILTRATION RATE > 60 ML/MIN (60-); GLUCOSE 109 mg/dL (74-118); HDL CHOLESTEROL 40 MG/DL (40-60); LDL CHOLESTEROL 123 MG/DL (60-130); SODIUM 140 mmol/L (136-145); TRIGLYCERIDES 158 MG/DL (0-149)
[2019-12-31 08:07] VITALS: BP 137/76
[2019-12-31] MEDS: SODIUM CHLORIDE 0.9% 1000ML 1,000 ML IV SCH (08:50)
[2019-12-31] MEDS ORDERED: CLOPIDOGREL BISULFATE 75 MG TAB PO SCH (09:00)
[2019-12-31] MEDS: ASPIRIN 81 MG ENTERIC COATED PO SCH (09:00)
[2019-12-31 09:35] VITALS: BP 137/76
--- NOTE | 2019-12-31 10:18 | Discharge Summary ---
FINAL DISCHARGE DIAGNOSES: 1. Chest pain, status post left heart catheterization performed on 12/30/2019, status post PCI, one stent placement. 2. Hypertension. 3. Sinus bradycardia, asymptomatic. CONSULTANTS: Cardiology. PHYSICAL EXAMINATION: VITAL SIGNS: Temperature is 96.9, pulse 54, respiratory rate is 19, blood pressure 137/76, pulse ox 98% on room air. LABORATORY FINDINGS: Show white count 9, hemoglobin 13, hematocrit 40, platelets of 188. Coagulation; PT 13, INR 0.93, PTT 27. Chemistries; sodium 140, potassium 4, chloride 107, bicarb 25, anion gap of 12, BUN is 14, creatinine 1.02, glucose 109. Hemoglobin A1c is 6.2, calcium 9. LFTs within normal range. Troponins were negative. Albumin was 3.8. TSH was 0.935. LDL was 123. Microbiology, none. IMAGING STUDIES: Chest x-ray found to be negative. HOSPITAL COURSE: A 64-year-old male, who came into the ED with complaints of underlying substernal chest pain, ongoing for several days prior to arrival to the hospital. The patient was admitted and Cardiology was consulted. A 2D echo showed normal EF. The patient underwent left heart catheterization on 12/30/2019 and underwent status post PCI in the diagonal branch with one stent placed. The patient did well postprocedure with no complaints. He maintained on anti-platelet therapy as well as cardioprotective medications. The patient was kept overnight till 12/31/2019, currently asymptomatic with no complaints. He has been cleared for discharge by Cardiology. The patient advised to follow up with Cardiology in 2 weeks' time. On the day of discharge, vital signs were stable, labs reviewed and stable. The patient was seen, evaluated, and examined thoroughly on day of discharge. No other complaints. The patient verbalized understanding and agreed with plan of care to followup as an outpatient with primary care physician in 1 week and headhunter in 2 weeks' time. MEDICATIONS: See med reconciliation including, 1. Plavix 75 mg one tab p.o. daily, quantity 30 x2 refills. 2. Aspirin 81 mg one tab p.o. daily, quantity 30, refills two. 3. Lipitor 20 mg one tab p.o. daily, quantity 30, refills 0. DISCHARGE INSTRUCTIONS: The patient was advised to follow up very closely in 2 weeks with Cardiology as the patient needs at least one year of Plavix as well as aspirin. DISPOSITION: Home. CONDITION: Stable. DIET: Heart healthy. In the event of any worsening symptoms, the patient was advised to come back to the ED for further evaluation. Discharge summary took greater than 35 minutes. MD ESTEVAN Samuel/JANIE /[id number]
[2019-12-31] MEDS ORDERED: ONDANSETRON HCL 4 MG ORAL DISINTEGRATING TAB PO PRN (10:45)
--- NOTE | 2019-12-31 11:28 | NUR ---
PT DISCHARGED HOME, NO CHEST PAIN AT THIS TIME NO DISTRESS NOTED, PT GIVEN PRESCRIPTIONS. AND WAS ASKED TO FOLLOW UP WITH [facility]RE[facility] DEPARTMENT DISPATCHER, AND PCP, IV SITE WAS REMOVED, NO SWELLING NO REDNESS AT THIS TIME.
[2019-12-31] MEDS ORDERED: FAMOTIDINE 20 MG TAB PO SCH (16:30)
== END 2019-12-31 11:40 | disposition home or self-care (01) | DRG 247 ==
LOC: ER 14:48 → ERHOLD 16:18 → MED/SURG2 17:47 → OBSVTOIN 12-30 12:20
PROVIDERS: ADMIT Internal Medicine; ATTEND Internal Medicine
PROC: 027034Z Dilation of Coronary Artery, One Artery with Drug-eluting Intraluminal Device, Percutaneous Approach (ICD-10-PCS; principal; 2019-12-30)
PROC: 4A023N7 Measurement of Cardiac Sampling and Pressure, Left Heart, Percutaneous Approach (ICD-10-PCS; 2019-12-30)
PROC: B2151ZZ Fluoroscopy of Left Heart using Low Osmolar Contrast (ICD-10-PCS; 2019-12-30)
PROC: B2111ZZ Fluoroscopy of Multiple Coronary Arteries using Low Osmolar Contrast (ICD-10-PCS; 2019-12-30)
DX: I25.110 Atherosclerotic heart disease of native coronary artery with unstable angina pectoris (principal); I50.30 Unspecified diastolic (congestive) heart failure; R00.1 Bradycardia, unspecified; E79.0 Hyperuricemia without signs of inflammatory arthritis and tophaceous disease; E78.00 Pure hypercholesterolemia, unspecified; E66.9 Obesity, unspecified; Z68.31 Body mass index [BMI] 31.0-31.9, adult; I11.0 Hypertensive heart disease with heart failure
CPT/HCPCS: 36415; 71045; 80053; 80061; 82550; 82553; 83036; 83735; 83880; 84443; 84484; 85025; 85610; 85730; 92928; 93005; 93306; 93458; 96361; 99152; 99153; 99284; C1760; C1766; C1876; C1887; G0378; J0360; J0583; J1650; J2001; J2250; J3010; J7030; Q9967

== ENCOUNTER → 2023-01-02 | Day surgery (SDC) | payer MEDICARE, OTHER ==
[~2023-01-02] MED LIST: ALLOPURINOL300 MG PO; AMLODIPINE BESYL5 MG PO; ASPIRIN EC81 MG PO; ATORVASTATIN CA20 MG PO; BENICAR20 MG PO; FENTANYL CITRATE/PF 100MCG/2 ML INJ ONE; HYOSCYAMINE SULFATE 0.5 MG/ML INJ ONE; LACTATED RINGER'S 1,000 ML ONE; LIDOCAINE HCL 2% LOCAL INJ 5 ML SDV VIAL INJ ONE; LOSARTAN-HCTZ1 EAC1 PO; MULTI-VITAMIN1 EACH PO
[2023-01-02 07:33] LABS: BASOPHILS % 0.3 % (0.0-1.0); EOSINOPHILS % 0.4 % (0.0-6.0); HEMATOCRIT 44.1 % (38.2-49.6); HEMOGLOBIN 14.6 g/dL (14.0-18.0); LYMPHOCYTES # (AUTO) 1.3 (1.0-3.2); LYMPHOCYTES % 14.9 % (18.0-39.1); MEAN CORPUSCULAR HEMOGLOBIN 29.5 pg (28-32); MEAN CORPUSCULAR HGB CONC 33.1 g/dL (31-35); MEAN CORPUSCULAR VOLUME 89.1 fL (81-99); MONOCYTES # (AUTO) 1.4 (0.2-0.8); MONOCYTES % 15.8 % (4.4-11.3); NEUTROPHILS # (AUTO) 6.1 (2.1-6.9); NEUTROPHILS % 68.2 % (38.7-80.0); PLATELET COUNT 215 x10e3/uL (140-360); RED BLOOD COUNT 4.95 x10e6/uL (4.3-5.7); RED CELL DISTRIBUTION WIDTH 13.4 % (11.7-14.4)
[2023-01-02 09:34] VITALS: BP 136/84
== END | disposition home or self-care (01) ==
LOC: OR 06:17
PROVIDERS: ATTEND Internal Medicine Gastroenterology
DX: Z09 Encounter for follow-up examination after completed treatment for conditions other than malignant neoplasm (principal); D12.3 Benign neoplasm of transverse colon; K62.1 Rectal polyp; K57.30 Diverticulosis of large intestine without perforation or abscess without bleeding; K62.89 Other specified diseases of anus and rectum; K64.8 Other hemorrhoids; Z71.3 Dietary counseling and surveillance; I10 Essential (primary) hypertension; Z71.89 Other specified counseling; E78.00 Pure hypercholesterolemia, unspecified; E11.9 Type 2 diabetes mellitus without complications; M10.9 Gout, unspecified; Z79.84 Long term (current) use of oral hypoglycemic drugs; Z79.899 Other long term (current) drug therapy; Z68.31 Body mass index [BMI] 31.0-31.9, adult; Z86.16 Personal history of COVID-19
CPT/HCPCS: 36415; 45380; 45385; 85025; 93005; J1980; J2001; J3010; J7121; 45378

== ENCOUNTER → 2024-10-19 | Day surgery (SDC) | payer MEDICARE ==
[2024-10-14 09:19] LABS: BASOPHILS % 0.3 % (0.0-1.0); EOSINOPHILS # (AUTO) 0.2 (0.0-0.4); EOSINOPHILS % 2.5 % (0.0-6.0); HEMATOCRIT 41.8 % (38.2-49.6); HEMOGLOBIN 12.9 g/dL (14.0-18.0); LYMPHOCYTES # (AUTO) 1.5 (1.0-3.2); LYMPHOCYTES % 25.1 % (18.0-39.1); MEAN CORPUSCULAR HEMOGLOBIN 29.1 pg (28-32); MEAN CORPUSCULAR HGB CONC 30.9 g/dL (31-35); MEAN CORPUSCULAR VOLUME 94.1 fL (81-99); MONOCYTES # (AUTO) 0.6 (0.2-0.8); MONOCYTES % 9.5 % (4.4-11.3); NEUTROPHILS # (AUTO) 3.8 (2.1-6.9); NEUTROPHILS % 62.3 % (38.7-80.0); PLATELET COUNT 174 x10e3/uL (140-360); RED BLOOD COUNT 4.44 x10e6/uL (4.3-5.7); RED CELL DISTRIBUTION WIDTH 12.4 % (11.7-14.4)
[~2024-10-19] MED LIST changes: +B-121000 MC1; +FISH OIL 1,0001 EAC7; -HYOSCYAMINE SULFATE 0.5 MG/ML INJ ONE; -LACTATED RINGER'S 1,000 ML ONE; +PROPOFOL IV EMULSION 10 MG/ML 20 ML VIAL ONE
[2024-10-19 14:10] VITALS: BP 124/81; PULSE 45; RESP 16; TEMP 97.1; O2SAT 100
== END | disposition home or self-care (01) ==
LOC: OR 10:16
PROVIDERS: ATTEND Internal Medicine Gastroenterology
DX: K21.9 Gastro-esophageal reflux disease without esophagitis (principal); K29.50 Unspecified chronic gastritis without bleeding; B96.81 Helicobacter pylori [H. pylori] as the cause of diseases classified elsewhere; K22.89 Other specified disease of esophagus; K20.90 Esophagitis, unspecified without bleeding; K44.9 Diaphragmatic hernia without obstruction or gangrene; Z71.3 Dietary counseling and surveillance; E11.9 Type 2 diabetes mellitus without complications; I25.10 Atherosclerotic heart disease of native coronary artery without angina pectoris; I10 Essential (primary) hypertension; Z71.89 Other specified counseling; E78.00 Pure hypercholesterolemia, unspecified; E66.9 Obesity, unspecified; M10.9 Gout, unspecified; Z01.810 Encounter for preprocedural cardiovascular examination; Z01.812 Encounter for preprocedural laboratory examination; Z79.84 Long term (current) use of oral hypoglycemic drugs; Z79.899 Other long term (current) drug therapy; Z68.33 Body mass index [BMI] 33.0-33.9, adult; Z86.16 Personal history of COVID-19; Z95.5 Presence of coronary angioplasty implant and graft
CPT/HCPCS: 36415; 43239; 85025; 93005; J2003; J2470; J2704; J3010

== ENCOUNTER 2025-01-26 23:16 | Emergency (ER) | payer MEDICARE ==
[~2025-01-26] VITALS: Ht 170.2 cm; Wt 96.2 kg
[~2025-01-26 23:16] MED LIST changes: -FENTANYL CITRATE/PF 100MCG/2 ML INJ ONE; -LIDOCAINE HCL 2% LOCAL INJ 5 ML SDV VIAL INJ ONE; -PROPOFOL IV EMULSION 10 MG/ML 20 ML VIAL ONE
[2025-01-26 23:19] VITALS: TEMP 98.7
[2025-01-26 23:42] LABS: BASOPHILS % 0.3 % (0.0-1.0); EOSINOPHILS # (AUTO) 0.2 (0.0-0.4); EOSINOPHILS % 2.7 % (0.0-6.0); HEMATOCRIT 38.5 % (38.2-49.6); HEMOGLOBIN 12.7 g/dL (14.0-18.0); LYMPHOCYTES # (AUTO) 1.8 (1.0-3.2); LYMPHOCYTES % 26.6 % (18.0-39.1); MEAN CORPUSCULAR VOLUME 87.9 fL (81-99); MONOCYTES # (AUTO) 0.7 (0.2-0.8); MONOCYTES % 9.9 % (4.4-11.3); NEUTROPHILS % 60.2 % (38.7-80.0); PLATELET COUNT 200 x10e3/uL (140-360); RED BLOOD COUNT 4.38 x10e6/uL (4.3-5.7); RED CELL DISTRIBUTION WIDTH 13.3 % (11.7-14.4); WHITE BLOOD COUNT 6.65 x10e3/uL (4.8-10.8)
[2025-01-26 23:47] LABS: BACTERIA,URINE FEW /HPF; BILIRUBIN,URINE NEGATIVE (NEGATIVE); CLARITY,URINE CLEAR (CLEAR); COLOR,URINE YELLOW (YELLOW); EPITHELIAL CELLS,URINE FEW /LPF; GLUCOSE, URINE NEGATIVE (NEGATIVE); KETONES,URINE NEGATIVE (NEGATIVE); LEUKOCYTE ESTERASE ,URINE NEGATIVE (NEGATIVE); NITRITE,URINE NEGATIVE (NEGATIVE); PH,URINE 6.5 (5 - 7); PROTEIN,URINE DIPSTICK NEGATIVE (NEGATIVE); RBC,URINE 0-5 /HPF (0-5); URINE UROBILINOGEN 0.2 mg/dL (0.2 - 1); WBC,URINE (MAN) 0-5 /HPF (0-5)
[2025-01-27 00:07] LABS: ALBUMIN 4.3 g/dL (3.5-5.0); ALBUMIN/GLOBULIN RATIO 1.5 (0.8-2.0); ANION GAP 16.5 mmol/L (8-16); BILIRUBIN,TOTAL 0.5 mg/dL (0.2-1.2); CREATININE, SERUM 1.4 mg/dL (0.72-1.25); POTASSIUM 4.5 mmol/L (3.5-5.1); TOTAL PROTEIN 7.1 g/dL (6.5-8.1)
[2025-01-27 01:00] VITALS: PULSE 47; RESP 14; O2SAT 98
== END 2025-01-27 01:20 | disposition home or self-care (01) ==
LOC: ER 23:27
DX: R42 Dizziness and giddiness (principal); I10 Essential (primary) hypertension; E11.65 Type 2 diabetes mellitus with hyperglycemia; M10.9 Gout, unspecified; R94.31 Abnormal electrocardiogram [ECG] [EKG]; Z95.5 Presence of coronary angioplasty implant and graft
CPT/HCPCS: 36415; 80053; 81001; 84484; 85025; 93005; 99283